=== PATIENT | female | born 1940 | race Caucasian/White ===

== ENCOUNTER 2016-08-21 14:37 | Emergency (ER) | payer OTHER ==
[~2016-08-21] VITALS: Ht 167.6 cm; Wt 81.8 kg
[~2016-08-21 14:37] MED LIST: BETIMOL 0.100 DROP/5 BOTH EYES; CVS FISH OIL 11 EAC1 PO; GLUCOTROL10 MG PO; JANUMET 50/11 TABLET PO; LANTUS100 UNIT/1 SQ
[2016-08-21] MEDS ORDERED: NORCO 5/3251 TABLET PO (18:59)
[2016-08-21 19:14] VITALS: BP 137/70
== END 2016-08-21 19:24 | disposition home or self-care (01) ==
LOC: EXP 14:37 → EME 14:37 → EXP 19:24
PROC: 3E0T3CZ (ICD-10-PCS; principal; 2016-08-21)
DX: S42.211A Unspecified displaced fracture of surgical neck of right humerus, initial encounter for closed fracture (principal); S42.251A Displaced fracture of greater tuberosity of right humerus, initial encounter for closed fracture; S42.291A Other displaced fracture of upper end of right humerus, initial encounter for closed fracture; S43.001A Unspecified subluxation of right shoulder joint, initial encounter; S05.11XA Contusion of eyeball and orbital tissues, right eye, initial encounter; W01.0XXA Fall on same level from slipping, tripping and stumbling without subsequent striking against object, initial encounter; E11.9 Type 2 diabetes mellitus without complications; Z79.4 Long term (current) use of insulin; Z87.891 Personal history of nicotine dependence
CPT/HCPCS: 70450; 70486; 73030; 99281; 99285; J2405; J3010; J3360; S0020